=== PATIENT | female | born 1960 | race Caucasian/White ===

== ENCOUNTER 2016-10-15 17:17 | Emergency (ER) | payer BC ==
--- NOTE | ~2016-10-15 | CR126 ---
[facility] A Service of [facility] & [facility] RADIOLOGY TEXT RESULTS PATIENT: RAFAL GRAFF LOCATION: [place] : 62 UNIT #: [id number] AGE: [address]: Macie Patterson APRN SEX: F ORDER DR: [id number] [facility] [address] [place], [place] [address] [id number] E MR#: [id number] Acc #: [id number] NAME: RAFAL GRAFF. : 1960 SEX: F STUDY DATE/TIME: 10/15/2016 16:44 UNIT: [facility] ROOM: STUDY DESCRIPTION: CR Foot Complete Min 3 View Lt Attending Physician: Macie Patterson A.P.R.N. Ordering Physician: Ed Barak Calloway M.D. Primary Care Physician: Primary Care Physician No MEDICAL IMAGING REPORT This report is preliminary unless electronic signature is present EXAM Left foot series, 10/15/2016 HISTORY Pain. Anterior foot pain. 3 weeks. No known injury. FINDINGS AP, lateral and oblique radiographs of the left foot are presented. Normal bony mineralization. No traumatic fracture or malalignment. The joint spaces are intact. 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 Normal variant. No soft tissue defect, subcutaneous air or radiodense foreign body. Small plantar calcaneal spur. Dictated by... Vic Mercer M.D. THIS IS AN ELECTRONICALLY VERIFIED REPORT Vic Mercer M.D. at 10/16/2016 5:05 PM TOMI/crissy TD: 10/15/2016 20:04 JOB #: [id number] MEDICAL IMAGING REPORT Page 1 of 1 COPY
[~2016-10-15 17:17] MED LIST: NO MEDICATIONS; VICODIN 5/1 TAB 5/50 PO
== END 2016-10-15 18:00 | disposition home or self-care (01) ==
LOC: CFTX 17:17
DX: M79.672 Pain in left foot (principal); Z88.0 Allergy status to penicillin; Z88.2 Allergy status to sulfonamides
CPT/HCPCS: 29405; 73630; 99283

== ENCOUNTER 2017-02-05 19:51 | Emergency (ER) | payer BC ==
[~2017-02-05] VITALS: Ht 160 cm; Wt 74.8 kg
--- NOTE | ~2017-02-05 | CR112 ---
[facility] A Service of [facility] & [facility] RADIOLOGY TEXT RESULTS PATIENT: RAFAL GRAFF LOCATION: [facility] : 62 UNIT #: [id number] AGE: [address]: CHRISTIAN IVAN APRN SEX: F ORDER DR: [id number] [facility] [address] [place], [place] [address] [id number] E MR#: [id number] Acc #: [id number] NAME: RAFAL GRAFF. : 1960 SEX: F STUDY DATE/TIME: 02/05/2017 20:11 UNIT: [facility] ROOM: STUDY DESCRIPTION: CR Finger 2 View 4Th Lt Attending Physician: Christian Ivan Aprn Ordering Physician: Ed Doc King Calloway Primary Care Physician: No Primary Care Physician MEDICAL IMAGING REPORT This report is preliminary unless electronic signature is present EXAM Left fourth digit, 3 views. HISTORY Swelling and redness fourth digit today. No injury. FINDINGS Three views left fourth digit demonstrate normal bone alignment. No fracture or joint space narrowing. No opaque soft tissue foreign body. IMPRESSION Negative. Dictated by... Gene Wolf M.D. THIS IS AN ELECTRONICALLY VERIFIED REPORT Gene Wolf M.D. at 02/06/2017 1:20 PM HOOD/matt TD: 02/06/2017 01:26 JOB #: [id number] MEDICAL IMAGING REPORT Page 1 of 1 COPY
== END 2017-02-05 21:20 | disposition home or self-care (01) ==
LOC: CED 19:51 → CFTX 19:51
DX: S63.615A Unspecified sprain of left ring finger, initial encounter (principal); Z88.0 Allergy status to penicillin; Z88.2 Allergy status to sulfonamides; X58.XXXA Exposure to other specified factors, initial encounter; Y92.69 Other specified industrial and construction area as the place of occurrence of the external cause; Y93.89 Activity, other specified; Y99.0 Civilian activity done for income or pay
CPT/HCPCS: 29280; 73140; 99283